=== PATIENT | male | born 1995 | race Caucasian/White ===

== ENCOUNTER → 2023-12-05 09:26 | Outpatient (REF) | payer BC, SELFPAY | LOC: RAD 09:26 | PROVIDERS: ATTENDING PHYSICIAN Otolaryngology | DX: R13.14 Dysphagia, pharyngoesophageal phase (principal) | CPT/HCPCS: 74221 ==

== ENCOUNTER → 2024-01-04 06:43 | Day surgery (SDC) | payer BC, SELFPAY | LOC: GI 06:43 | PROVIDERS: ATTENDING PHYSICIAN Internal Medicine Gastroenterology | DX: K22.2 Esophageal obstruction (principal); K22.89 Other specified disease of esophagus; F45.8 Other somatoform disorders; K20.0 Eosinophilic esophagitis; K29.70 Gastritis, unspecified, without bleeding | CPT/HCPCS: 43249; 43239; 88305; 88342 ==